=== PATIENT | female | born 1980 | race American Indian/Alaskan Native ===

== ENCOUNTER 2019-02-14 08:59 | Emergency (ER) | payer SELFPAY ==
--- NOTE | 2019-02-14 12:54 | Emergency Department Report ---
ED Female HPI - General Chief complaint: Upper Respiratory Infection Stated complaint: COLD SYMPTOMS/POSS STD Time Seen by Provider: 02/14/19 09:29 Source: patient Mode of arrival: Ambulatory Limitations: No Limitations - History of Present Illness MD Complaint: vaginal discharge, pelvic pain -: Gradual, days(s) (2) Location: suprapubic Radiation: non-radiating Severity: mild Quality: cramping, burning Consistency: constant Improves with: none Worsens with: none Are you Now?: No Associated Symptoms: vaginal discharge (reports possible content with an STD. States that she overheard her significant other on the phone stating that he had an STD to another person), dysuria. denies: loss of appetite, hematuria, shortness of breath, syncope, weakness - Related Data Previous Rx's Medication Instructions Recorded Last Taken Type Azithromycin [Zithromax TAB] 1,000 mg PO QDAY #2 tablet 02/14/19 Unknown Rx Cefixime [Suprax] 400 mg PO ONCE #1 capsule 02/14/19 Unknown Rx Allergies Allergy/AdvReac Type Severity Reaction Status Date / Time carisoprodol [From Soma] Allergy Hives Verified 02/14/19 09:06 ED Review of Systems ROS: Stated complaint: COLD SYMPTOMS/POSS STD Other details as noted in HPI Comment: All other systems reviewed and negative ED Past Medical Hx - Past Medical History Hx Hypertension: Yes - Surgical History Additional Surgical History: TUBE LATIGATION - Social History Smoking Status: Never Smoker Substance Use Type: None - Medications Home Medications: Home Medications Medication Instructions Recorded Confirmed Last Taken Type Azithromycin [Zithromax TAB] 1,000 mg PO QDAY #2 tablet 02/14/19 Unknown Rx Cefixime [Suprax] 400 mg PO ONCE #1 capsule 02/14/19 Unknown Rx ED Physical Exam - General Limitations: No Limitations General appearance: alert, in no apparent distress - Head Head exam: Present: atraumatic, normocephalic - Eye Eye exam: Present: normal appearance - ENT ENT exam: Present: mucous membranes moist - Neck Neck exam: Present: normal inspection - Respiratory Respiratory exam: Present: normal lung sounds bilaterally. Absent: respiratory distress - Cardiovascular Cardiovascular Exam: Present: regular rate, normal rhythm. Absent: systolic murmur, diastolic murmur, rubs, gallop - GI/Abdominal GI/Abdominal exam: Present: soft, normal bowel sounds - External exam: Present: normal external exam, bleeding Speculum exam: Present: erythema, vaginal discharge, vaginal bleeding (scant) Bi-manual exam: Present: other (nurse legal internship was present). Absent: cervical motion tendernes - Extremities Exam Extremities exam: Present: normal inspection - Back Exam Back exam: Present: normal inspection - Neurological Exam Neurological exam: Present: alert, oriented X3 - Psychiatric Psychiatric exam: Present: normal affect, normal mood - Skin Skin exam: Present: warm, dry, intact, normal color. Absent: rash Critical care attestation.: If time is entered above; I have spent that time in minutes in the direct care of this critically ill patient, excluding procedure time. ED Disposition Clinical Impression: URI (upper respiratory infection), Vaginitis Disposition: TO HOME OR SELFCARE Is pt being admited?: No Does the pt Need Aspirin: No Condition: Stable Instructions: Sexually Transmitted Diseases (ED), Safe Sex (ED), Upper Respiratory Infection in Children (ED) Additional Instructions: You have been evaluated in the Emergency Department today for your vaginal discharge and possibility of STD. You were tested today for gonorrhea and chlamydia and the results are still pending; you have been given treatment for these infections presumptively anyway. You will receive a phone call in~3 days if the results are positive. You should follow up with your primary care provider for further STI testing. Please take your prescribed antibiotics for the full course of the medication as directed. Please follow up with your primary care physician within two days. Return to the Emergency Department if you experience fevers 100.4 or greater, worsening or uncontrolled pain, rashes, sores, vomiting, or for any other concerning symptoms. Thank you for choosing us for your care.
[2019-02-14 13:30] LABS: Bilirubin,Urine NEG (Negative); Blood,Urine SM (Negative); Color,Urine Yellow (Yellow); Mucus,Urine FEW /HPF; Protein,Urine <15 mg/dL mg/dL (Negative)
[2019-02-14 13:32] LABS: HCG Qualitative,Urine Negative (Negative)
== END 2019-02-14 13:58 | disposition home or self-care (01) ==
LOC: ED 08:59
DX: N76.0 Acute vaginitis (principal); J06.9 Acute upper respiratory infection, unspecified; I10 Essential (primary) hypertension; Z98.51 Tubal ligation status; Z88.8 Allergy status to other drugs, medicaments and biological substances
CPT/HCPCS: 81001; 81025; 87210; 87591

== ENCOUNTER 2019-11-06 04:10 | Emergency (ER) | payer MEDICAID ==
[2019-11-06 04:22] VITALS: BP 151/106
--- NOTE | 2019-11-06 05:23 | XRay Report ---
EXAMINATION: Left knee radiograph, 3 views CLINICAL INFORMATION: Left knee pain COMPARISON: None. FINDINGS: There is no evidence of acute fracture or focal soft tissue swelling. No significant bony d egenerative changes are noted. Signer Name: Charleen Gregg MD Signed: 11/06/2019 5:18 AM Workstation Name: [id number]
--- NOTE | 2019-11-06 07:54 | Emergency Department Report ---
ED Extremity Problem HPI - General Chief complaint: Extremity Injury, Lower Stated complaint: LT KNEE PAIN Time Seen by Provider: 11/06/19 07:51 Source: patient Mode of arrival: Ambulatory Limitations: No Limitations - History of Present Illness Initial comments: 39-year-old -Italian female presents to the emergency room stating that she is been having worsening knee pain in the last week or 2. Patient states that she had an injury back in 2017 and she has been dealing with intermittent pain but the last 2 weeks is been constant throbbing pain worse with walking better at rest. Patient reports she has a primary care doctor Dr. Manriquez at [facility] but has not been able to make an appointment till November. Patient has never followed up with an orthopedic provider. Patient states that she is taking [id number] Tylenol arthritis. She reports that ibuprofen makes her blood pressure elevated. Patient denies any recent injuries. MD Complaint: extremity pain Onset/Timin -: week(s) Location: left, knee History of Same: Yes -: Yes arthralgia Severity scale (0 -10): 8 Quality: aching, other (Throbbing) Consistency: constant Improves with: rest Worsens with: walking - Related Data Previous Rx's Medication Instructions Recorded Last Taken Type Azithromycin [Zithromax TAB] 1,000 mg PO QDAY #2 tablet 02/14/19 Unknown Rx Cefixime [Suprax] 400 mg PO ONCE #1 capsule 02/14/19 Unknown Rx Allergies Allergy/AdvReac Type Severity Reaction Status Date / Time carisoprodol [From Soma] Allergy Hives Verified 02/14/19 09:06 ED Review of Systems ROS: Stated complaint: LT KNEE PAIN Other details as noted in HPI Comment: All other systems reviewed and negative ED Past Medical Hx - Past Medical History Previous Medical History?: Yes Hx Hypertension: Yes - Surgical History Past Surgical History?: Yes Additional Surgical History: TUBE LATIGATION - Social History Smoking Status: Never Smoker Substance Use Type: None - Medications Home Medications: Home Medications Medication Instructions Recorded Confirmed Last Taken Type Azithromycin [Zithromax TAB] 1,000 mg PO QDAY #2 tablet 02/14/19 Unknown Rx Cefixime [Suprax] 400 mg PO ONCE #1 capsule 02/14/19 Unknown Rx ED Physical Exam - General Limitations: No Limitations General appearance: alert, in no apparent distress, obese - Head Head exam: Present: atraumatic, normocephalic - Eye Eye exam: Present: normal appearance - ENT ENT exam: Present: mucous membranes moist - Expanded Lower Extremity Exam Left Upper Leg exam: Present: normal inspection Knee exam: Present: tenderness (Medial), swelling (Medial). Absent: abrasion, laceration, deformity, erythema Lower Leg exam: Present: normal inspection Ankle exam: Present: normal inspection, full ROM Foot/Toe exam: Present: normal inspection, full ROM Neuro vascular tendon exam: Present: no vascular compromise - Back Exam Back exam: Present: normal inspection, full ROM - Neurological Exam Neurological exam: Present: alert, oriented X3 - Psychiatric Psychiatric exam: Present: normal affect, normal mood - Skin Skin exam: Present: warm, dry, intact, normal color. Absent: rash ED Course Vital Signs 11/06/19 04:17 Temperature 98.1 F Pulse Rate 85 Respiratory 20 Rate Blood Pressure 151/106 O2 Sat by Pulse 100 Oximetry ED Medical Decision Making - Radiology Data Radiology results: report reviewed [address] [address] XRay Report Signed Patient: ERIN DELANEY MR#: [id number] : 1980 Acct:[id number] Age/Sex: 39 / F ADM Date: 11/06/19 Loc: ED Attending Dr: Ordering Physician: KAYLEN ANDRADE MD Date of Service: 11/06/19 Procedure(s): XR knee 3V LT Accession Number(s): [id number] cc: ED MD LUPE Fluoro Time In Minutes: EXAMINATION: Left knee radiograph, 3 views CLINICAL INFORMATION: Left knee pain COMPARISON: None. FINDINGS: There is no evidence of acute fracture or focal soft tissue swelling. No significant bony degenerative changes are noted. Signer Name: Charleen Gregg MD Signed: 11/06/2019 5:18 AM Workstation Name: [id number] Transcribed By: EB Dictated By: Charleen Gregg MD Electronically Authenticated By: Charleen Gregg MD Signed Date/Time: 11/06/19517 DD/ 7 TD/TT: - Medical Decision Making 39-year-old -Italian female presents to the emergency room stating that she is been having worsening knee pain in the last week or 2. Patient states that she had an injury back in 2016 and she has been dealing with intermittent pain but the last 2 weeks is been constant throbbing pain worse with walking better at rest. Patient reports she has a primary care doctor Dr. Manriquez at [facility] but has not been able to make an appointment till November. Patient has never followed up with an orthopedic provider. Patient states that she is taking [id number] Tylenol arthritis. She reports that ibuprofen makes her blood pressure elevated. Patient denies any recent injuries. Discussed with patient that her x-rays are negative for any acute fractures. Also discussed with patient that she may need to follow-up with an orthopedic provider for further evaluation for possible consideration of MRI. Discussed the patient to continue taking Tylenol for pain. Elevate ice. Critical care attestation.: If time is entered above; I have spent that time in minutes in the direct care of this critically ill patient, excluding procedure time. ED Disposition Clinical Impression: Knee pain, acute, Morbid obesity with BMI of 40.0-44.9, adult Disposition: DC-01 TO HOME OR SELFCARE Is pt being admited?: No Does the pt Need Aspirin: No Condition: Stable Instructions: Obesity (ED) Additional Instructions: X-ray is negative for any acute fractures or dislocation. I recommend continue with Tylenol or ibuprofen as needed for pain management. I do recommend losing weight as this will help with your knee pain. Referrals: PRIMARY CARE, [Primary Care Provider] - 3-5 Days Forms: Work/School Release Form(ED)
== END 2019-11-06 08:16 | disposition home or self-care (01) ==
LOC: ED 04:10
DX: M25.562 Pain in left knee (principal); E66.01 Morbid (severe) obesity due to excess calories; I10 Essential (primary) hypertension; Z68.41 Body mass index [BMI] 40.0-44.9, adult; Z98.51 Tubal ligation status; Z79.2 Long term (current) use of antibiotics; Z79.899 Other long term (current) drug therapy; Z88.8 Allergy status to other drugs, medicaments and biological substances

== ENCOUNTER 2021-05-16 15:03 | Emergency (ER) | payer MEDICAID ==
[2021-05-16 17:06] VITALS: BP 128/79
--- NOTE | 2021-05-16 17:52 | XRay Report ---
Left wrist-3 views INDICATION: pain. COMPARISON: None available. IMPRESSION: No acute osseous abnormality. Normal alignment. 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 Soft tissues are unremarkable. Signer Name: Lazarus Horne MD Signed: 05/16/2021 5:48 PM Workstation Name: [id number]
[2021-05-16] MEDS ORDERED: HYDROcodone/ACETAMINOPHEN 5-325 MG TAB PO ONE (18:16)
--- NOTE | 2021-05-16 18:18 | Emergency Department Report ---
Upper Extremity - HPI Chief Complaint: Extremity Problem,Nontraumatic Stated Complaint: PAIN IN LT WRIST /KNEE Time Seen by Provider: 05/16/21 17:03 Upper Extremity: Left Wrist Occurred When: 3 Days Mechanism: Other Severity: mild Symptoms: Yes Pain with Movement, Yes Swelling, No Deformity, No Limited Range of Movement, No Numbness, No Weakness Other History: Left wrist pain since Thurs, denies injury. ED Review of Systems ROS: Stated complaint: PAIN IN LT WRIST /KNEE Other details as noted in HPI Constitutional: denies: chills, fever Eyes: denies: eye pain, eye discharge, vision change ENT: denies: ear pain, throat pain Respiratory: denies: cough, shortness of breath, wheezing Cardiovascular: denies: chest pain, palpitations Endocrine: no symptoms reported Gastrointestinal: denies: abdominal pain, nausea, diarrhea Genitourinary: denies: urgency, dysuria, discharge Musculoskeletal: denies: back pain, joint swelling, arthralgia Skin: denies: rash, lesions Neurological: denies: headache, weakness, paresthesias Psychiatric: denies: anxiety, depression Hematological/Lymphatic: denies: easy bleeding, easy bruising ED Past Medical Hx - Past Medical History Hx Hypertension: Yes - Surgical History Additional Surgical History: TUBE LATIGATION - Social History Smoking Status: Never Smoker Substance Use Type: None - Medications Home Medications: Home Medications Medication Instructions Recorded Confirmed Last Taken Type Azithromycin [Zithromax TAB] 1,000 mg PO QDAY #2 tablet 02/14/19 05/16/21 Unknown Rx Cefixime [Suprax] 400 mg PO ONCE #1 capsule 02/14/19 05/16/21 Unknown Rx Upper Extremity Exam - Exam General: Vital signs noted. No distress. Alert and acting appropriately. Head and Torso: No HEENT Abnormality, No Neck Tenderness, No Chest/Lungs Abnormality, No Abdominal Tenderness, No Back Tenderness Shoulder Exam: Yes Normal Range of Motion in Shoulder, No Shoulder Tenderness, No Clavicle Tenderness, No Shoulder Deformity, No AC Joint Tenderness Arm Exam: No Arm/Humerus Tenderness, No Arm Deformity Elbow: No Elbow Tenderness, No Normal Range of Motion in Elbow, No Elbow Deformity Forearm: No Forearm Tenderness, No Forearm Deformity, No Pain with Pronation, No Pain with Supination Wrist: Yes Wrist Tenderness, No Wrist Deformity, No Snuffbox Tenderness, No Pain with Axial Thumb Compression Hand: Yes Normal ROM in Digit(s), No Hand Tenderness, No Hand Deformity, No Digit Tenderness, No Digit(s) Deformity, No Tendon Dysfunction CMS Exam: No Broken Skin, No Normal Distal Pulses, No Normal Capillary Refill, No Normal Distal Sensation ED Course Vital Signs 05/16/21 05/16/21 05/16/21 16:49 17:04 17:05 Temperature 98.8 F 98.2 F Pulse Rate 105 H 87 Respiratory 18 18 Rate Blood Pressure 128/79 Blood Pressure 176/121 [Right] O2 Sat by Pulse 99 100 99 Oximetry - Reevaluation(s) Reevaluation #1: 05/16/21 18:17 X RAY SHWOED NO FRACTURES Critical care attestation.: If time is entered above; I have spent that time in minutes in the direct care of this critically ill patient, excluding procedure time. ED Disposition Clinical Impression: Right wrist pain Disposition: 01 HOME / SELF CARE / HOMELESS Is pt being admited?: No Does the pt Need Aspirin: No Condition: Stable Instructions: Wrist Pain, Adult, [id number]
== END 2021-05-16 18:36 | disposition home or self-care (01) ==
LOC: ED 15:03
DX: M25.531 Pain in right wrist (principal); I10 Essential (primary) hypertension
CPT/HCPCS: 99283